=== PATIENT | female | born 1955 | race Two or more races ===

== ENCOUNTER 2016-06-28 12:49 | Emergency (ER) | payer OTHER ==
[2016-06-28 12:59] VITALS: BP 136/77; PULSE 67; TEMP 97.5; BMI 33.8
[2016-06-28] MEDS ORDERED: IBUPROFEN 600 MG TABLET (FP) PO ONE ×2 (14:58→14:59)
--- NOTE | 2016-06-28 14:59 | PDOC ---
History of Present Illness - General Chief Complaint: Pain Stated Complaint: LEG PAIN Time Seen by Provider: 06/28/16 14:37 History Source: Patient Exam Limitations: Language Barrier - History of Present Illness Initial Comments: 06/28/16 16:10 Chief complaint: Left heel pain. Patient was offered head of business development phone, did not want, wanted her granddaughter to interpret. Patient has 2 weeks of left heel pain. Painful to walk. Patient has a history of NIDDM, states she takes her medication and has been checking her sugars and they have been normal. Shouldn't denies any injury. She has no other complaints. Ambulatory. GENERAL/CONSTITUTIONAL: No fever, weakness. dizziness HEAD, EYES, EARS, NOSE AND THROAT: No change in vision. No ear pain or discharge. No sore throat. CARDIOVASCULAR: No chest pain RESPIRATORY: No shortness of breath or cough GASTROINTESTINAL: No pain, nausea, vomiting, diarrhea or constipation GENITOURINARY: No dysuria MUSCULOSKELETAL: No neck or back pain, + left heel SKIN: No rash NEUROLOGIC: No headache, vertigo, loss of consciousness, or loss of sensation. GENERAL: The patient is awake, alert, and fully oriented, in no acute distress. HEAD: Normal with no signs of trauma. EYES: Pupils equal, round and reactive to light, sclera anicteric, conjunctiva clear. ENT: pharynx: no erythema, no exudate, uvula midline NECK: supple CHEST: clear, nontender, rr ABD: soft, nontender EXTREMITIES: Left heel with callus, minimal erythema, no signs of infection or cellulitis, Achilles intact, no signs of injury, otherwise normal range of motion, no edema. NEUROLOGICAL: Normal speech, normal gait. SKIN: Warm, Dry Past History - Past Medical History Allergies/Adverse Reactions: Allergies Allergy/AdvReac Type Severity Reaction Status Date / Time No Known Allergies Allergy Verified 06/28/16 12:55 Home Medications: Ambulatory Orders Hydrochlorothiazide [Hctz -] 25 mg PO DAILY 01/26/16 Lisinopril 10 mg PO DAILY 01/26/16 Metformin HCl 500 mg PO BID 01/26/16 Omeprazole 40 mg PO DAILY 01/26/16 Simvastatin 40 mg PO DAILY 01/26/16 Naproxen [Naprosyn -] 500 mg PO BID #14 tablet 06/28/16 Anemia: No Asthma: No Cancer: No Cardiac Disorders: No CVA: No COPD: No CHF: No Dementia: No Diabetes: Yes (niddm) GI Disorders: Yes (gerd) Disorders: No HTN: Yes Hypercholesterolemia: Yes Liver Disease: No Seizures: No Thyroid Disease: No Other medical history: OP - Psycho/Social/Smoking Cessation Hx Anxiety: No Suicidal Ideation: No Smoking History: Never smoked Have you smoked in the past 12 months: No Information on smoking cessation initiated: No Hx Alcohol Use: No Drug/Substance Use Hx: No Substance Use Type: None Hx Substance Use Treatment: No *Physical Exam - Vital Signs Last Vital Signs Temp Pulse Resp BP Pulse Ox 97.5 F L 67 18 136/77 100 06/28/16 12:56 06/28/16 12:56 06/28/16 12:56 06/28/16 12:56 06/28/16 12:56 Medical Decision Making - Medical Decision Making 06/28/16 16:42 [employer] [id number] All results discussed with patient, minimal spur, has thickened heel, discussed wearing shoes with arch support given there may be a component of plantar fasciitis, 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 She will follow-up with the lawnmower mechanic as instructed, did not want crutches, agreed to use cane.'s were answered *DC/Admit/Observation/Transfer Diagnosis at time of Disposition: Inflammatory pain of left heel - Discharge Dispostion Disposition: HOME Condition at time of disposition: Stable Admit: No - Prescriptions Prescriptions: Naproxen [Naprosyn -] 500 mg PO BID #14 tablet - Referrals Referrals: Diane Smith MD [Primary Care Provider] - - Patient Instructions Printed Discharge Instructions: Heels That Hurt Additional Instructions: Use the cane to walk as needed wear shoes that have good arch support as discussed Follow-up with your lawnmower mechanic, you said you have one to follow-up with And take Naprosyn 500 mg twice a day as needed for up to a week Print Language: SRI LANKAN
== END 2016-06-28 16:19 | disposition home or self-care (01) ==
LOC: JERFT 12:49
DX: M77.32 Calcaneal spur, left foot (principal); I10 Essential (primary) hypertension; E11.9 Type 2 diabetes mellitus without complications; Z79.4 Long term (current) use of insulin; K21.9 Gastro-esophageal reflux disease without esophagitis
CPT/HCPCS: 73630-TC-LT; 99281-25